=== PATIENT | male | born 1995 | race Caucasian/White ===

== ENCOUNTER 2021-10-26 18:31 | Emergency (ER) | payer OTHER ==
[2021-10-26] MEDS ORDERED: Diphtheria,Pertussis(Acell),Tetanus Vaccine 0.5 ML Syringe IM ONE (18:40)
[2021-10-26] MEDS ORDERED: Bacitracin Oint 1 GM U/D Packet TOP ONE (18:40)
[2021-10-26] MEDS: Lidocaine 1% PF 2 ML SDV INJECT ONE (19:04)
== END 2021-10-26 19:14 | disposition home or self-care (01) ==
LOC: MW.ED 18:31
DX: S81.812A Laceration without foreign body, left lower leg, initial encounter (principal); Z23 Encounter for immunization; V29.9XXA Motorcycle rider (driver) (passenger) injured in unspecified traffic accident, initial encounter; Y93.55 Activity, bike riding
CPT/HCPCS: 12002; 90471; 90715; 99282; 99282-25